=== PATIENT | male | born 1955 | race African-American/Black ===

== ENCOUNTER 2017-01-05 13:23 | Emergency (ER) | payer OTHER ==
[~2017-01-05] VITALS: Ht 175.3 cm; Wt 113.8 kg
[~2017-01-05 13:23] MED LIST: AMITIZA 24 MCG24 MC1 PO; AMITRIPTYLINE150 MG PO; BENTYL 20 MG TA20 M1 PO; CITRATE OF MAG296 ML PO; HYDRALAZINE HC100 MG PO; IRON325 PO; LASIX 40 MG TAB40 M2 PO; LIPITOR40 MG PO; LOPRESSOR50 PO; METHADONE HCL 110 M1 PO; NEURONTIN 300300 M1; NORCO 5-325 TA1 EACH PO; ONDANSETRON HCL4 M2 PO; PERCOCET PO; POTASSIUM20 PO; PROTONIX40 M1 PO; VIMPAT50 MG PO; ZOFRAN ODT4 MG PO
[2017-01-05] MEDS ORDERED: METHOCARBAMOL500 M2 PO (13:36)
[2017-01-05] MEDS ORDERED: VIMPAT100 MG PO (13:36)
[2017-01-05] MEDS ORDERED: ASPIRIN81 M2 PO (14:24)
[2017-01-05] MEDS ORDERED: HYDROCODONE-AP1 EAC6 PO (14:48)
[2017-01-05] MEDS ORDERED: IBUPROFEN 600600 M1 PO (14:48)
== END 2017-01-05 15:11 | disposition home or self-care (01) ==
LOC: ER 13:23
DX: M25.551 Pain in right hip (principal); W01.0XXA Fall on same level from slipping, tripping and stumbling without subsequent striking against object, initial encounter; Y93.89 Activity, other specified; Y92.89 Other specified places as the place of occurrence of the external cause; Y99.9 Unspecified external cause status

== ENCOUNTER → 2017-01-12 | Outpatient (CLI) | payer OTHER ==
[~2017-01-12] VITALS: Ht 175.3 cm; Wt 115.5 kg
[~2017-01-12] MED LIST changes: +ASPIRIN81 M2 PO; +HYDROCODONE-AP1 EAC6 PO; +IBUPROFEN 600600 M1 PO; +METHOCARBAMOL500 M2 PO; +VIMPAT100 MG PO
--- NOTE | ~2017-01-12 | HPC ---
[facility] [place] [address] PAIN MANAGEMENT CONSULTATION Name: OMID PEREIRA Room #: REG CHAKA ZamoraHannah#: [id number] Admission: 01/12/17 Attend Phys: Anne Ford MD Discharge: Date of : 51 Report #: [id number] THIS REPORT FOR: //name// CC: Devyn Han DATE OF SERVICE: 01/12/2017 FOLLOWUP COMPLAINT: "I am having some constipation with the medication. Medication is helping." FOLLOWUP HISTORY: The patient is a 61-year-old gentleman who has been following the pain clinic because of pelvic pain. As you recall, he has been seen at [facility]. He continued to have pain and discomfort. It involves the testicular area. He rates his discomfort as 7-8 with certain activities. Sitting on hard surfaces can be problematic. He notes that there is pain in his tailbone area today which is new. He fell down some stairs after losing his balance. He was seen in the Emergency Room at [facility]. Diagnosis of a tailbone contusion was made. He continues with his current medical regimen. PHYSICAL EXAMINATION: Blood pressure 128/81, pulse 53, respiratory rate 16, room air saturation is 97%. The patient has pain and discomfort in the scrotal area and has noted some increased pain and discomfort after a fall down stairs hitting his back. IMPRESSION: 1. Chronic orchialgia, improved with methadone. 2. Degenerative joint disease, status post four shoulder surgeries. 3. Status post fall down flight of stairs with some contusion of the tailbone area. 4. Temporomandibular joint disease status post surgeries, bilateral knee replacements. 5. History of 3 hernia surgeries. 6. History of stomach . RECOMMENDATIONS: We will continue with his current medical management using methadone. He will try more agent such as Metamucil, Dulcolax and more food with fibre. He also will increase his p.o. intake of liquids to help decrease his problems with opioid constipation. We may consider another medication at the next visit if his constipation continues to be problematic. We would like [facility] [address] [place] [address] PAIN MANAGEMENT CONSULTATION Name: OMID PEREIRA [id number] Admission: 01/12/17 Attend Phys: Anne Ford MD Discharge: Date of : 51 Report #: [id number] to thank you for letting us participate in his care. We hope he continues to improve. By: [id number] Anne Ford MD /nt
[2017-01-12 10:49] VITALS: BP 128/81
== END | disposition home or self-care (01) ==
LOC: PAIN 07:48
DX: N45.2 Orchitis (principal); M19.019 Primary osteoarthritis, unspecified shoulder; M26.603 Bilateral temporomandibular joint disorder, unspecified

== ENCOUNTER → 2017-04-08 | Outpatient (CLI) | payer OTHER ==
[~2017-04-08] VITALS: Ht 175.3 cm; Wt 111.8 kg
[~2017-04-08] MED LIST changes: +REMERON15 MG PO
[2017-04-08 10:58] VITALS: BP 100/63
== END | disposition home or self-care (01) ==
LOC: PAIN 03-30 07:03
DX: K08.89 Other specified disorders of teeth and supporting structures (principal); G89.29 Other chronic pain; R10.30 Lower abdominal pain, unspecified; Z79.82 Long term (current) use of aspirin; Z79.899 Other long term (current) drug therapy

== ENCOUNTER → 2017-09-28 | Outpatient (CLI) | payer OTHER ==
[~2017-09-28] VITALS: Ht 175.3 cm; Wt 106.9 kg
[~2017-09-28] MED LIST changes: +NORCO 10-325 T1 EACH PO
--- NOTE | ~2017-09-28 | HPC ---
[facility] [address] [place] [address] PAIN MANAGEMENT CONSULTATION Name: OMID PEREIRA Room #: REG CHAKA Corazon#: [id number] Admission: 09/28/17 Attend Phys: Anne Ford MD Discharge: Date of : 51 Report #: [id number] THIS REPORT FOR: //name// CC: Devyn Han DATE OF SERVICE: 09/28/2017 FOLLOWUP COMPLAINT: The medicine still helpful. I am still having some abdominal soreness in the area where have had my surgery. FOLLOWUP HISTORY: The patient is a 62-year-old gentleman who has been seen in the pain clinic because of chronic abdominal pain. As you may recall, he had surgery in mid August. He still is recovering from the surgery. States that he still has some pain and discomfort in the area of incisions. It has been about 6 weeks, but overall things are going reasonably well. He is not having any discharge and the wound appears to be healing reasonably well. He is having less of the testicular pain, which he was having in the past. He feels that he is still somewhat limited in his ability to engage in activities of daily living because of soreness in his abdomen. He said he did some walking, but noticed some increased soreness in that area, so he backed off a bit. He is having no problems with his bowel or bladder at this juncture, which would be significantly changed. PHYSICAL EXAMINATION: VITAL SIGNS: Blood pressure is 122/66, pulse 67, respiratory rate 14, room air saturation 99%. Height 5 feet 9 inches, weight 223 pounds, BMI is 34. The patient has not fallen since we saw him last. He has some soreness in the incisional area near the umbilicus down into the area of his incision. Overall, it appears that things are healing well. There is no evidence of wound breakdown. There is some cross still in the areas where the healing continues to progress. Rates his pain as a 7/10. Feels that there might be some soreness in the groin area as well especially when he walks in and is engaging in more activity. IMPRESSION: 1. Abdominal pain, improved after lysis of adhesions with surgery in August 2017. 2. Abdominal pain secondary to incisions of recent surgery. 3. Degenerative joint disease, status post four shoulder surgeries. 4. Two temporomandibular joint surgeries. 5. Bilateral knee replacements. 6. History of stomach blockage stable at this juncture. We will follow up with the patient in the near future. [address] [address] PAIN MANAGEMENT CONSULTATION Name: OMID PEREIRA Room #: REG [facility].#: [id number] Admission: 09/28/17 Attend Phys: Anne Ford MD Discharge: Date of : 51 Report #: [id number] RECOMMENDATIONS: At this juncture, we had a talk with him regarding the use of opioid medications. We explained that opioid medications are most efficacious during the early days post-surgery. They become less effective over a period of time. We talked about the possible addiction/tolerance that develops with use of opioid medications. We would recommend that he continue to increase his walking activity. We explained that generally pain will start to improve as time progresses. He is in agreement with this. A script for his medications of methadone and hydrocodone were written. We will continue to tolerate these medications in the near future. By: [id number] Anne Ford MD /SOM
[2017-09-28 10:26] VITALS: BP 122/66
== END ==
LOC: PAIN 06:12
DX: R10.9 Unspecified abdominal pain (principal); Z98.890 Other specified postprocedural states; Z96.653 Presence of artificial knee joint, bilateral